=== PATIENT | female | born 1965 | race American Indian/Alaskan Native ===

== ENCOUNTER 2021-02-02 10:49 | Emergency (ER) | payer OTHER ==
[2021-02-02 13:15] LABS: Basophils % (Auto) 0.3 % (0.0-1.8); Eosinophils # (Auto) 0.1 K/mm3 (0.0-0.4); Eosinophils % (Auto) 0.3 % (0.0-4.3); Hematocrit 37.9 % (30.3-42.9); Hemoglobin 12.7 gm/dl (10.1-14.3); Lymphocytes # (Auto) 1.6 K/mm3 (1.2-5.4); Mean Corpuscular HGB Conc 34 % (30-34); Mean Corpuscular Volume 80 fl (79-97); Monocytes # (Auto) 1.3 K/mm3 (0.0-0.8); Monocytes % (Auto) 8.6 % (0.0-7.3); Platelet Count 227 K/mm3 (140-440); Red Blood Count 4.75 M/mm3 (3.65-5.03)
[2021-02-02 13:22] LABS: Red Cell Distribution Width 23.3 % (13.2-15.2)
[2021-02-02 13:31] LABS: INR 1.62 (0.87-1.13)
[2021-02-02 14:06] LABS: Calcium 9.5 mg/dL (8.4-10.2)
[2021-02-02 14:42] LABS: Bilirubin,Direct 20.9 mg/dL (0-0.2)
[2021-02-03 01:56] VITALS: BP 155/83
== END 2021-02-03 04:40 | disposition other institution (70) ==
LOC: ED 10:49
DX: K70.30 Alcoholic cirrhosis of liver without ascites (principal); K72.90 Hepatic failure, unspecified without coma; K76.7 Hepatorenal syndrome; Z98.890 Other specified postprocedural states
CPT/HCPCS: 36415; 71046; 74176; 80048; 80076; 82140; 82150; 82247; 82248; 82805; 83690; 84703; 85025; 85610; 99292